=== PATIENT | male | born 1955 ===

== ENCOUNTER 2021-11-19 16:57 | Inpatient (IN) | payer MEDICARE, OTHER ==
[~2021-11-19] VITALS: Ht 180.3 cm; Wt 94.0 kg
--- NOTE | 2021-11-19 17:22 | NUR ---
Assumed care of pt at 1648; pt direct admit from [facility] and arrived accompanied by helicopter crew and security. Report received from emergency nurse, Jaime, prior to pt departing from sending facility. Pt arrived with levophed through peripheral IV at 0.07 mcg/kg/min. Discussed dosing with pharmacist. Levophed started at 6 mcg/min on arrival to ICU 6. BP stable. HR 110-125, atrial fibrillation. Pt arrived wearing 3 LPM NC. Titrated to room air. SpO2 95%. Lungs diminished t/o. Zarate swapped out and urinalysis sent.
[2021-11-19 18:00] LABS: Source, Urine Foley catheter
[2021-11-19 18:03] LABS: Appearance, Urine Clear (Clear); Bilirubin, Urine Neg (Neg); Blood, Urine 4+ (Neg); Color, Urine Yellow (P-Yellow); Glucose Qualitative, Urine Neg (Neg); Ketones, Urine Neg (Neg); Leukocyte Esterase, Urine 2+ (Neg); Nitrite, Urine Neg (Neg); Protein, Urine 2+ (Neg); Specific Gravity, Urine 1.015 (1.003-1.022); Urobilinogen, Urine 3+ (Normal)
[2021-11-19 18:41] LABS: Bacteria Few /hpf; Renal Epithelial Rare /hpf (0-Rare); Squamous Epithelial Cells Few /hpf (Few); Transitional Epithelial Cells Few /hpf (0-Rare); White Blood Cells, Urine 25-50 /hpf (0-5)
[2021-11-19 20:04] LABS: BASOPHILS ABSOLUTE AUTO 0.03 K/mm3 (0.00-0.23); BASOPHILS PERCENT AUTO 0 % (0-2); EOSINOPHILS ABSOLUTE AUTO 0.05 K/mm3 (0.00-0.68); EOSINOPHILS PERCENT AUTO 0 % (0-6); Hematocrit 21.7 % (37.0-53.0); Hemoglobin 6.9 g/dL (13.5-17.5); IMMATURE GRAN ABSOLUTE AUTO 0.06 K/mm3 (0.00-0.10); IMMATURE GRAN PERCENT AUTO 1 % (0-1); LYMPHOCYTES ABSOLUTE AUTO 1.44 K/mm3 (0.84-5.20); LYMPHOCYTES PERCENT AUTO 13 % (21-46); MONOCYTES ABSOLUTE AUTO 0.61 K/mm3 (0.16-1.47); MONOCYTES PERCENT AUTO 5 % (4-13); Mean Corpuscular HGB 35.9 pg (26.0-34.0); Mean Corpuscular HGB Conc 31.8 g/dL (31.5-36.5); Mean Corpuscular Volume 113 fL (80-100); NEUTROPHILS ABSOLUTE AUTO 9.17 K/mm3 (1.96-9.15); NEUTROPHILS PERCENT AUTO 81 % (41-73); NRBC ABSOLUTE 0.04 K/mm3 (0.00-0.02); NRBC Auto 0.4 /100 WBC (0.0-0.2); Platelet Count 142 K/mm3 (150-400); RDW Coefficient Variation 17.2 % (11.7-14.2); RDW Standard Deviation 71.1 fL (35.1-46.3); Red Blood Cell Count 1.92 M/mm3 (4.30-5.90); White Blood Cell Count 11.36 K/mm3 (4.00-11.30)
[2021-11-19 20:20] LABS: Alanine Aminotransfer (ALT/SGP 22 U/L (12-78); Albumin, Blood 2.2 g/dL (3.4-5.0); Albumin/Globulin Ratio 0.8 (0.8-1.8); Alk Phos 530 U/L (50-136); Anion Gap 8 mmol/L (6-16); Aspartate Aminotrans (AST/SGOT 95 U/L (12-37); Bilirubin, Total 1.6 mg/dL (0.1-1.0); Blood Urea Nitrogen 16 mg/dL (8-24); Bun/Creatinine Ratio 20.6 (12.0-20.0); CO2, Blood 22 mmol/L (21-32); Calcium, Blood 7.8 mg/dL (8.5-10.1); Chloride, Blood 108 mmol/L (98-108); Creatinine, Blood 0.78 mg/dL (0.60-1.20); Globulin, Blood 2.6 g/dL (2.2-4.0); Glomerular Filtration Rate >60 (60-); Glucose, Blood 96 mg/dL (70-99); Potassium, Blood 3.8 mmol/L (3.5-5.5); Sodium, Blood 138 mmol/L (136-145); Total Protein, Blood 4.8 g/dL (6.4-8.2)
[2021-11-19 20:39] LABS: Percent Saturation 87.5 % (20.0-50.0)
[2021-11-19] MEDS ORDERED: Ventolin/Prove6.7 GM INH (21:39)
[2021-11-19] MEDS ORDERED: GABAPENTIN600 MG PO (21:40)
[2021-11-19] MEDS ORDERED: ELIQUIS5 M3 PO (21:41)
[2021-11-19] MEDS ORDERED: Prinivil5 MG PO (21:42)
[2021-11-19] MEDS ORDERED: SPIRONOLACTONE50 MG PO (21:47)
[2021-11-19] MEDS ORDERED: METOPROLOL TART25 MG PO (21:47)
[2021-11-19] MEDS ORDERED: SOAANZ20 MG PO (21:48)
--- NOTE | 2021-11-19 22:29 | NUR ---
SHIFT ASSESSMENT ASSUMED CARE OF PT @ 1900. BEDSIDE REPORT RECEIVED FROM ARTURO PINEDA. PT ALERT AND ORIENTED, FOLLOWING COMMANDS. PT FRIENDLY, INTERACTIVE WITH CARE. PT MOVING ALL EXTREMITIES, VERY WEAK IN BLE. USES WHEELCHAIR AT BASELINE DUE TO OLD HIP FX/ KNEE FX. CURRENTLY ON RA c SATS >95%, WHEEZES T/O, ALBUTEROL TREATMENT GIVEN BY RT. A-FIB ON THE SHELL TRIM TOOL SETTER. LEVOPHED GTT INFUSING @ 6MCG/MIN c MAP >65 VIA PICC IN JOYCE. TEMP PROBE BRAXTON PATENT, DRAINING AAKASH URINE. CALL LIGHT IN REACH. WILL MONITOR CLOSELY.
[2021-11-20 04:46] LABS: BASOPHILS ABSOLUTE AUTO 0.03 K/mm3 (0.00-0.23); BASOPHILS PERCENT AUTO 0 % (0-2); EOSINOPHILS ABSOLUTE AUTO 0.01 K/mm3 (0.00-0.68); EOSINOPHILS PERCENT AUTO 0 % (0-6); Hematocrit 21.5 % (37.0-53.0); Hemoglobin 6.8 g/dL (13.5-17.5); IMMATURE GRAN ABSOLUTE AUTO 0.09 K/mm3 (0.00-0.10); IMMATURE GRAN PERCENT AUTO 1 % (0-1); LYMPHOCYTES ABSOLUTE AUTO 1.33 K/mm3 (0.84-5.20); LYMPHOCYTES PERCENT AUTO 11 % (21-46); MONOCYTES ABSOLUTE AUTO 0.22 K/mm3 (0.16-1.47); MONOCYTES PERCENT AUTO 2 % (4-13); Mean Corpuscular HGB 35.1 pg (26.0-34.0); Mean Corpuscular HGB Conc 31.6 g/dL (31.5-36.5); Mean Corpuscular Volume 111 fL (80-100); Mean Platelet Volume 9.9 fL (9.1-12.4); NEUTROPHILS ABSOLUTE AUTO 10.82 K/mm3 (1.96-9.15); NEUTROPHILS PERCENT AUTO 87 % (41-73); NRBC ABSOLUTE 0.02 K/mm3 (0.00-0.02); NRBC Auto 0.2 /100 WBC (0.0-0.2); Platelet Count 153 K/mm3 (150-400); RDW Coefficient Variation 17.2 % (11.7-14.2); RDW Standard Deviation 68.9 fL (35.1-46.3); Red Blood Cell Count 1.94 M/mm3 (4.30-5.90)
[2021-11-20 05:05] LABS: Alanine Aminotransfer (ALT/SGP 25 U/L (12-78); Albumin, Blood 2.2 g/dL (3.4-5.0); Albumin/Globulin Ratio 0.7 (0.8-1.8); Alk Phos 524 U/L (50-136); Anion Gap 8 mmol/L (6-16); Aspartate Aminotrans (AST/SGOT 91 U/L (12-37); Bilirubin, Total 1.4 mg/dL (0.1-1.0); Blood Urea Nitrogen 14 mg/dL (8-24); Bun/Creatinine Ratio 20.5 (12.0-20.0); CO2, Blood 22 mmol/L (21-32); Calcium, Blood 7.7 mg/dL (8.5-10.1); Chloride, Blood 106 mmol/L (98-108); Creatinine, Blood 0.68 mg/dL (0.60-1.20); Glomerular Filtration Rate >60 (60-); Glucose, Blood 151 mg/dL (70-99); Potassium, Blood 4.1 mmol/L (3.5-5.5); Sodium, Blood 136 mmol/L (136-145); Total Protein, Blood 5.2 g/dL (6.4-8.2)
--- NOTE | 2021-11-20 06:19 | NUR ---
SHIFT SUMMARY PT REMAINS ALERT AND ORIENTED. HE WAS ABLE TO SLEEP IN SMALL INCREMENTS DURING THE NIGHT. REMAINED OFF SUPPLEMENTAL OXYGEN, O2 SATS >95% ON RA. LEVOPHED GTT @ 4MCG/MIN c MAP >65. PT ASKING FOR SNACKS, STATED HE HASN'T HAD ANY FOOD IN A COUPLE DAYS. BEDSIDE SWALLOW EVALUATION COMPLETED BY THIS NURSE, PT DID WELL. NO SIGNS OF ASPIRATION. PT HOPING TO TRANSITION DIET TODAY. ONE SMALL LOOSE BM IN BEDPAN. TEMP PROBE BRAXTON REMAINS PATENT, DRAINING AAKASH URINE. NO OTHER ACUTE CHANGES IN PT CONDITION, WILL CONTINUE TO MONITOR.
--- NOTE | 2021-11-20 07:12 | NUR ---
ASSUME CARE: I have assumed care of this patient.
--- NOTE | 2021-11-20 10:19 | NUR ---
UPDATE: Dr. Ace called and notified of elevated HR. RN instructed to increase levophed titration.
--- NOTE | 2021-11-20 16:48 | NUR ---
Call placed to blood bank to inquire on status of 1 U PRBCs. Per blood bank, will be at least 30 more minutes until blood slip is available.
--- NOTE | 2021-11-20 17:35 | NUR ---
UPDATE: This RN called blood bank regarding delayed blood product; will send desi.
--- NOTE | 2021-11-20 18:52 | NUR ---
SHIFT SUMMARY: Pt continues to 2mcg of levophed for hypotension. He has received 50g of albumin with one unit of PRBC transfusing currently. HR afib in 130s with periods up to 160s. Pt was given a one time dose of diltiazem for rate control. Diltiazem drip held to reassess HR and BP after pt receives blood product per Dr. Winters. PICC line dressing changed. Pt began declining q 2 hr turns noting that it makes his "skin hurt". He was encouraged to reposition to prevent any skin breakdown.
[2021-11-21 03:43] LABS: BASOPHILS ABSOLUTE AUTO 0.01 K/mm3 (0.00-0.23); BASOPHILS PERCENT AUTO 0 % (0-2); EOSINOPHILS PERCENT AUTO 0 % (0-6); Hematocrit 18.6 % (37.0-53.0); Hemoglobin 6.1 g/dL (13.5-17.5); IMMATURE GRAN ABSOLUTE AUTO 0.22 K/mm3 (0.00-0.10); IMMATURE GRAN PERCENT AUTO 2 % (0-1); LYMPHOCYTES ABSOLUTE AUTO 1.49 K/mm3 (0.84-5.20); LYMPHOCYTES PERCENT AUTO 13 % (21-46); MONOCYTES ABSOLUTE AUTO 0.46 K/mm3 (0.16-1.47); MONOCYTES PERCENT AUTO 4 % (4-13); Mean Corpuscular HGB 35.1 pg (26.0-34.0); Mean Corpuscular HGB Conc 32.8 g/dL (31.5-36.5); Mean Corpuscular Volume 107 fL (80-100); Mean Platelet Volume 9.5 fL (9.1-12.4); NEUTROPHILS ABSOLUTE AUTO 8.94 K/mm3 (1.96-9.15); NEUTROPHILS PERCENT AUTO 80 % (41-73); NRBC ABSOLUTE 0.02 K/mm3 (0.00-0.02); NRBC Auto 0.2 /100 WBC (0.0-0.2); Platelet Count 125 K/mm3 (150-400); Red Blood Cell Count 1.74 M/mm3 (4.30-5.90); White Blood Cell Count 11.12 K/mm3 (4.00-11.30)
[2021-11-21 03:58] LABS: Anion Gap 8 mmol/L (6-16); Blood Urea Nitrogen 22 mg/dL (8-24); Bun/Creatinine Ratio 32.7 (12.0-20.0); CO2, Blood 23 mmol/L (21-32); Calcium, Blood 7.8 mg/dL (8.5-10.1); Chloride, Blood 106 mmol/L (98-108); Creatinine, Blood 0.67 mg/dL (0.60-1.20); Glomerular Filtration Rate >60 (60-); Glucose, Blood 141 mg/dL (70-99); Phosphorus, Blood 1.8 mg/dL (2.5-4.9); Potassium, Blood 3.6 mmol/L (3.5-5.5); Sodium, Blood 137 mmol/L (136-145)
--- NOTE | 2021-11-21 05:25 | NUR ---
Advised patient of morning H&H and order recieved to give another unit of PRBC. Patient states that he doesn't think he needs it. Educated on low H&H and reason need for blood. Becomes agitated and states "there is nothing wrong with my blood" Educated on right for refusal of blood products if not wanted. Advised of consent signed saying does want blood products if needed and that is reason blood was ordered. Patient states he doesn't need it and will not take blood transfusion until talks to a doctor. put call out to Dr Moralez to advise of patient wishes.
--- NOTE | 2021-11-21 05:32 | NUR ---
blood transfusion completed at beginning of shift without complications. Heart rate 120-130's. Cardizem drip started and titrated per eMAR. Cardizem infusing at 5mg/hr at this time with rates 80-90's. Levophed infusing at 1mcg/min. Throughout night patient states he doesn't know why medical treatments are being done, there is nothing wrong with him. Educated muliple times on reasons treatments are being done to include Cardizem and levo. States 'my heart rate has been that high for over 30 years" and "my blood pressure is always that low" Advised can call doctor if does wants drips stopped, states will keep drips 'for tonight" Declined to recieve PRBC for low H&H this am until speaks with physcian. Awaiting call back from hospitalist to advise
--- NOTE | 2021-11-21 05:50 | NUR ---
Dr. Moralez advised that wants to talk to a physcian before agreeing to recieve more PRBC.
--- NOTE | 2021-11-21 07:27 | NUR ---
ASSUME CARE: I have assumed care of this patient.
--- NOTE | 2021-11-21 07:46 | NUR ---
UPDATE: Discussed infusing cardiac medications with patient and attempted to reinforce education. Pt continues to decline blood product until he is able to speak with provider. Pt expresses his frustrations with discontinuity of care between [facility] and hospital in [place] and states, "You guys should know my heart rate has always been around 150."
--- NOTE | 2021-11-21 08:51 | NUR ---
UPDATE: Pt requesting to speak with doctor. He was informed that Dr. Ace had rounded on pt, but he refused to speak with her. Pt states, "I want a doctor who speaks Congolese, she doesn't know what shes talking about." Pt becoming quite uncooperative with nursing staff.
--- NOTE | 2021-11-21 09:09 | NUR ---
PALLIATIVE CARE: Palliative care called to come see patient.
--- NOTE | 2021-11-21 14:07 | NUR ---
CONSULT: Call placed to Dr. Valdez at and HIPPA compliant message left requesting return phone call.
--- NOTE | 2021-11-21 14:10 | NUR ---
CONSULT: Dr Valdez called back and was updated on pt case.
[2021-11-21 15:48] LABS: Prostate Specific Antigen 0.377 ng/mL (0.000-4.000)
[2021-11-21 16:15] LABS: Carcinoembryonic Antigen 330.6 ng/mL (0.0-3.0)
[2021-11-21 16:16] LABS: Cancer Antigen 19-9 420.7 U/mL (2.0-37.0)
--- NOTE | 2021-11-21 17:31 | NUR ---
SHIFT SUMMARY: Pt changed to medical status today. Pt received bed bath and shave from BIOLOGY TUTOR. He has declined turns from RN. Palliative care involved in case. Dr Valdez consulted for oncology. CT biopsy with needle guidance was ordered; Per radiology this will be completed on Tuesday as they are not performed on the weekends.
[2021-11-22 03:59] LABS: Hematocrit 20.3 % (37.0-53.0); Hemoglobin 6.5 g/dL (13.5-17.5); Mean Corpuscular HGB 34.8 pg (26.0-34.0); Mean Corpuscular Volume 109 fL (80-100); Mean Platelet Volume 9.4 fL (9.1-12.4); NRBC ABSOLUTE 0.07 K/mm3 (0.00-0.02); NRBC Auto 0.9 /100 WBC (0.0-0.2); Platelet Count 133 K/mm3 (150-400); RDW Coefficient Variation 18.7 % (11.7-14.2); Red Blood Cell Count 1.87 M/mm3 (4.30-5.90); White Blood Cell Count 8.18 K/mm3 (4.00-11.30)
[2021-11-22 04:15] LABS: Albumin, Blood 2.8 g/dL (3.4-5.0); Anion Gap 5 mmol/L (6-16); Blood Urea Nitrogen 24 mg/dL (8-24); Bun/Creatinine Ratio 37.9 (12.0-20.0); CO2, Blood 26 mmol/L (21-32); Calcium, Blood 7.9 mg/dL (8.5-10.1); Chloride, Blood 108 mmol/L (98-108); Creatinine, Blood 0.63 mg/dL (0.60-1.20); Glomerular Filtration Rate >60 (60-); Glucose, Blood 101 mg/dL (70-99); Phosphorus, Blood 1.5 mg/dL (2.5-4.9); Potassium, Blood 3.9 mmol/L (3.5-5.5); Sodium, Blood 139 mmol/L (136-145)
[2021-11-22 04:47] LABS: BAND PERCENT MAN 6 % (0-8); BASOPHILS PERCENT MAN 0 % (0-2); EOSINOPHILS PERCENT MAN 0 % (0-6); LYMPHOCYTES ABSOLUTE MAN 1.06 K/mm3 (0.84-5.20); LYMPHOCYTES PERCENT MAN 13 % (21-46); MONOCYTES ABSOLUTE MAN 0.32 K/mm3 (0.16-1.47); MONOCYTES PERCENT MAN 4 % (4-13); NEUTROPHILS ABSOLUTE MAN 6.78 K/mm3 (1.96-9.15); SEG NEUTROPHILS PERCENT MAN 77 % (41-73); TOTAL CELLS COUNTED 100
--- NOTE | 2021-11-22 05:46 | NUR ---
Heart rhythem a-fib with stable rates 80-90's through out night. Blood pressure stable. Rested most of night. Declines for nursing to turn, states can turn self. Hgb 6.5 this am, still declining blood transfusion.
--- NOTE | 2021-11-22 10:54 | NUR ---
0730: RN COMPLETED SBAR REPORT TO THIS RN, ASSUMED CARE OF PT. PT RESTING IN ROOM. PT STATES HIS GOALS ARE TO RETURN HOME SOON POSSIBLE AND DECLINES TO DISCUSS MANY ELEMENTS OF HIS DISEASE PROCESS AT THIS TIME. VSS. DENIES SOB/N/V/CP/DIZZINESS. PALE, SKIN WARM/DRY. 0800: PT REPOSITIONED SELF WITH MINIMAL ASSISTANCE; PROVIDED MINIMAL OFFLOADING OF COCCYX BUT PATIENT ADAMANT THAT HE WILL NOT ALLOW BEING TURNED [id number] IT "THROWS [HIM] OFF." DISCUSSED PURPOSE OF REPOSITIONING, HE VERBALIZED UNDERSTANDING. 0900: PROVIDED CARE FOR PATIENT X APPROXIMATELY 30 MIN WITHIN ROOM, INCLUDING ANSWERING PT'S QUESTIONS AND ASSISTING WITH MEAL. 1030: PT HAD SMALL BOWEL MOVEMENT.
[2021-11-22 13:52] LABS: Stool Occult Blood Guaiac 1 Neg (Neg)
--- NOTE | 2021-11-22 17:54 | NUR ---
SHIFT SUMMARY NEURO: PT COOPERATIVE THROUGHOUT SHIFT, AAOX4 AND FOLLOWS COMPLEX COMMANDS. CARDIAC: ATRIAL FIBRILLATION WITHOUT RVR. HELD LISINOPRIL DUE TO SBP APPROXIMATELY 95MMHG. AFEBRILE. RESP: REC'D BREATHING TREATMENT. CHRONIC NONPRODUCTIVE COUGH, OCCASIONAL. GI: ATE 100% OF BREAKFAST, LUNCH, AND DINNER. BM X 3, SOFT/BROWN. : BRAXTON W/ 900ML UOP. KPHOS GIVEN FOR E'LYTE REPLACEMENT. INTEG: FULL BED BATH PROVIDED. PROTECTIVE BARRIER FOAM DRESSING TO COCCYX DUE TO PT DECLINING MAJOR POSITION ASSISTANCE. MK: NO CHANGES. MAKES MINOR POSITIONAL CHANGES, ALLOWS MINOR ASSISTANCE FOR TURNING. PSYCH: PT COOPERATIVE, PREFERS HIS ROOM COMPLETELY SHUT/PRIVATE TO FACILITATE WATCHING TV WITH VOLUME UP, AND LIGHTS OFF SO HE CAN CONTROL THEM FROM HIS BED.
[2021-11-23 03:54] LABS: Hematocrit 20.8 % (37.0-53.0); Hemoglobin 6.5 g/dL (13.5-17.5); Mean Corpuscular HGB 34.6 pg (26.0-34.0); Mean Corpuscular HGB Conc 31.3 g/dL (31.5-36.5); Mean Corpuscular Volume 111 fL (80-100); Mean Platelet Volume 9.5 fL (9.1-12.4); NRBC ABSOLUTE 0.12 K/mm3 (0.00-0.02); NRBC Auto 2.4 /100 WBC (0.0-0.2); Platelet Count 130 K/mm3 (150-400); RDW Coefficient Variation 18.4 % (11.7-14.2); RDW Standard Deviation 72.9 fL (35.1-46.3); Red Blood Cell Count 1.88 M/mm3 (4.30-5.90)
[2021-11-23 04:06] LABS: Albumin, Blood 2.6 g/dL (3.4-5.0); Anion Gap 2 mmol/L (6-16); Blood Urea Nitrogen 23 mg/dL (8-24); Bun/Creatinine Ratio 35.9 (12.0-20.0); CO2, Blood 26 mmol/L (21-32); Calcium, Blood 7.5 mg/dL (8.5-10.1); Chloride, Blood 110 mmol/L (98-108); Creatinine, Blood 0.64 mg/dL (0.60-1.20); Glomerular Filtration Rate >60 (60-); Glucose, Blood 87 mg/dL (70-99); Phosphorus, Blood 2.1 mg/dL (2.5-4.9); Potassium, Blood 4.2 mmol/L (3.5-5.5); Sodium, Blood 138 mmol/L (136-145)
[2021-11-23 04:13] LABS: BAND PERCENT MAN 3 % (0-8); BASOPHILS PERCENT MAN 0 % (0-2); EOSINOPHILS PERCENT MAN 0 % (0-6); LYMPHOCYTES ABSOLUTE MAN 0.58 K/mm3 (0.84-5.20); LYMPHOCYTES PERCENT MAN 12 % (21-46); MONOCYTES ABSOLUTE MAN 0.34 K/mm3 (0.16-1.47); MONOCYTES PERCENT MAN 7 % (4-13); MYELOCYTE ABSOLUTE MAN 0.04 K/mm3 (0.00-0.00); MYELOCYTE PERCENT MAN 1 % (0-0); NEUTROPHILS ABSOLUTE MAN 3.92 K/mm3 (1.96-9.15); SEG NEUTROPHILS PERCENT MAN 77 % (41-73); TOTAL CELLS COUNTED 100
--- NOTE | 2021-11-23 05:02 | NUR ---
Continues to have productive cough with yellow/white sputum. Sputum amount decreasing. Lungs coarse with exp wheeze bilat. Still refusing turns, educated on pressure ulcer prevention, states turning hurts back too much. will occasionally allow for shift of hips. complains mepilex on coccyx itches and hurts. Wants dressing taken off. Educated on dressing helps custion coccyx and helps prevent breakdown. Insist that mepilex be taken off. Mepilex removed. small fissure noted. Declines to have new dressing placed. Advised needs to shift hips more often to keep pressure off the area. Pain meds given per eMAR as needed.
[2021-11-23 06:46] LABS: International Normalized Ratio 1.44; Prothrombin Time Results 14.8 Sec (9.7-11.5)
--- NOTE | 2021-11-23 09:02 | NUR ---
CARE ASSUMED OF PT AT 0700. PT AWAKE, IRRITABLE. SOME OF PT W POOR INSIGHT REGARDING MEDICAL CARE/DESIONS. PT STATES HE REFUSED PT/OT "BECAUSE I CANT EVEN LIFT MY LEG. I NEED MEDICAL HELP FIRST SO I CAN MOVE MY LEG, THATS WHY IM HERE, FOR MEDICAL HELP". PT HAD ALSO REFUSED BLOOD TRANSFUSION BECAUSE "I DIDNT NEED IT, NOTHING IS WRONG WITH ME". IMPORTANCE OF FOLLOWING MD ADVICE REVIEWED. QUESTIONS ANSWERED. PT HAS AGREED TO BLOOD TRANSFUSION. PT MAY AGREE TO PT/OT LATER TODAY. PT MEDICATED FOR PAIN 03/17 "EVERYWHERE, YOU SHOULD KNOW WHERE IM HURTING, I SHOULDNT HAVE TO TELL YOU". BP MEDS HELD BP 91/63. BP SHOULD IMPROVE WITH BLOOD, WILL MEDICATE AT THAT POINT; WILL UPDATE DR HALEY. BONE BIOPSY WILL HAVE TO BE DONE AN OUTPT PER CALVIN GUTIERREZ IN RADIOLOGY; DR HALEY NOTIFIED.
--- NOTE | 2021-11-23 09:24 | NUR ---
BLOOD TRANSFUSION STARTED. PT CONTINUES TO COMPLAIN ABOUT CARE,"THOSE STUPID IDIOT GIRLS LEAVE THE AIR TREATMENT (UDN) ON BEACAUSE THEY'RE TOO BUSY VISITING THEIR FRIENDS BEING LAZY". BP 82/57, MAP 64. PT REPOSITIONED W PILLOWS.
--- NOTE | 2021-11-23 09:51 | NUR ---
AT 15MIN CHECK PT C/O SOB. VITAL SIGNS AT BASLINE, LUNG SOUNDS REMAIN COARSE. PT DOES HAVE SOME POSSIBLE STRIDOR, FORCED EXCELLED BREATH CAUSING A LOW TONE RUB SOUND. NO HIGH PITCHED NOISES, VOICE UNCHANGED, RESP UNLABORED. BLOOD TRANSFUSION STOPPED IMMEDIATELY, DR HALEY CALLED AND UPDATED. BENADRYL 25MG IV GIVEN. PT INITIALLY REFUSED BREATHING TREATMENT BUT THEN ACCEPTED LONG I AGREED TO STAY AT BEDSIDE.
--- NOTE | 2021-11-23 12:23 | NUR ---
CONVERSATION: SERVICES ENGINEER MAGDAE WITH PATIENT AND BEING EXTRA PATIENT WITH PATIENTKENDRA DURING CARE AND CONVERSATION. SPOKE WITH HIM ABOUT RECOGNIZING HE IS NOT STRONG HE HAS BEEN AT HOME. HE STATE HE " MESSED UP" AND NOW HE IS HERE IN THE HOSPITAL. HE STATE HE FELL AT HOME BETWEEN HIS BED AND MOTORIZED CHAIR AND HAD TO HAVE EMS LIFT HIM UP OFF THE FLOOR. HE STATES HE HATES FEELING SO HELPLESS. HE HAS NEVER HAD ANYONE CARE FOR HIM SINCE HE WAS 17 YRS OLD (FIFTY YEARS). HE STATES HE KNOWS THAT PHYSICAL THERAPY WANTS HIM TO STAND AND PIVOT TO CHAIR LIKE HE DID AT HOME BUT HE STATES HE "CANT DO IT HERE BECAUSE THE BED IS TOO HIGH AND HE DOESN'T HAVE HIS MOTORIZED CHAIR". HE EXPRESSES FEAR OF FALLING AND DOES NOT WANT TO HAVE THAT HAPPEN AGAIN. HE KNOWS HE NEEDS TO GET STRONGER HOWEVER HE FEELS VERY WEAK AND DOESN'T BELIEVE THE STAFF HERE WILL LISTEN TO HIS CONCERNS ABOUT WHAT HE WANTS TO AND OR FEELS HE CAN DO FOR HIS OWN TREATMENT PLAN. RN HAS BEEN HAVING PATIENT GUIDE BASIC ADL CARE AND CHOICES TO MOVE OR HOW TO MOVE. PATIENT ALLOWED STAFF TO MASSAGE HIS RIGHT ARM WHERE HE STATED HIS HANDS ARE TINGLING. PATIENT HAS BEEN PARTICIPATING IN CARE TO MOVE HIMSELF IN THE BED WITH VERY DETAILED POSITIONING REQUEST. RN IS TRYING TO GIVE PATIENT MUCH AUTOMOMY IN CARE AND TREATMENT PLAN HAS POSSIBLE WHILE STILL HAVING PATIENT RECIEVED CARE.
--- NOTE | 2021-11-23 14:31 | NUR ---
PT HAS REFUSED PT/OT EVALUATION.
--- NOTE | 2021-11-23 18:45 | NUR ---
ARRIVAL TO UNIT RECEIVED REPORT FROM JAYDE GATEHOUSE ATTENDANT. PT ARRIVED TO MEDICAL UNIT AT 15:37 VIA BED TRANSFER FROM ICU-6. VSS UPON ARRIVAL. PT MADE COMFORTABLE, ORIENTED TO ROOM AND UNIT AND ALL NEEDS MET. SUCTION SET UP IN ROOM FOR PT TO SELF SUCTION ORAL SECRETIONS FROM PRODUCTIVE COUGHING. TELE #22 PLACED WHICH SHOWS A. FIB WITH HR AT 120-130. PT RESTING QUIETLY, CALL LIGHT IN REACH.
--- NOTE | 2021-11-23 18:53 | NUR ---
SHIFT SUMMARY PT REMAINS RESTING QUIETLY WITH CALL LIGHT IN REACH. NO COMPLAINTS. VSS. TELLE SHOWS A. FIB WITH HR 120S-130S.
[2021-11-24 04:58] LABS: BASOPHILS ABSOLUTE AUTO 0.02 K/mm3 (0.00-0.23); BASOPHILS PERCENT AUTO 0 % (0-2); EOSINOPHILS ABSOLUTE AUTO 0.11 K/mm3 (0.00-0.68); EOSINOPHILS PERCENT AUTO 2 % (0-6); Hematocrit 21.3 % (37.0-53.0); Hemoglobin 6.6 g/dL (13.5-17.5); IMMATURE GRAN ABSOLUTE AUTO 0.29 K/mm3 (0.00-0.10); IMMATURE GRAN PERCENT AUTO 6 % (0-1); LYMPHOCYTES ABSOLUTE AUTO 1.48 K/mm3 (0.84-5.20); LYMPHOCYTES PERCENT AUTO 29 % (21-46); MONOCYTES ABSOLUTE AUTO 0.52 K/mm3 (0.16-1.47); MONOCYTES PERCENT AUTO 10 % (4-13); Mean Corpuscular HGB 33.8 pg (26.0-34.0); Mean Corpuscular Volume 109 fL (80-100); Mean Platelet Volume 9.3 fL (9.1-12.4); NEUTROPHILS ABSOLUTE AUTO 2.65 K/mm3 (1.96-9.15); NEUTROPHILS PERCENT AUTO 52 % (41-73); Platelet Count 121 K/mm3 (150-400); RDW Coefficient Variation 18.2 % (11.7-14.2); RDW Standard Deviation 70.9 fL (35.1-46.3); Red Blood Cell Count 1.95 M/mm3 (4.30-5.90); White Blood Cell Count 5.07 K/mm3 (4.00-11.30)
[2021-11-24 05:45] LABS: Albumin, Blood 2.6 g/dL (3.4-5.0); Anion Gap 6 mmol/L (6-16); Blood Urea Nitrogen 19 mg/dL (8-24); Bun/Creatinine Ratio 32.6 (12.0-20.0); CO2, Blood 24 mmol/L (21-32); Calcium, Blood 7.7 mg/dL (8.5-10.1); Chloride, Blood 108 mmol/L (98-108); Creatinine, Blood 0.58 mg/dL (0.60-1.20); Glomerular Filtration Rate >60 (60-); Glucose, Blood 79 mg/dL (70-99); Phosphorus, Blood 2.5 mg/dL (2.5-4.9); Potassium, Blood 4.5 mmol/L (3.5-5.5); Sodium, Blood 138 mmol/L (136-145)
--- NOTE | 2021-11-24 06:17 | NUR ---
SHIFT SUMMARY PT A/O X 4, MED PER MAR FOR C/O GENERALIZED PAIN, REPOSITIONED FOR COMFORT, PT ON SPECIALTY AIR MATTRESS. VSS, LUNGS COURSE, CONGESTED COUGH NOTED, RICK ROOM AIR, BREATHING TX PER RT. PT INCONTINENT OF SMALL BM, BRAXTON PATENT WITH CLEAR, YELLOW URINE NOTED. ANTICIPATE D/C WHEN MEDICALLY STABLE.
--- NOTE | 2021-11-24 12:35 | NUR ---
NOTIFIED BY TELE PT HR CONSISTENTLY 150-160. PT IN ROOM RESTING WITH NO S/S OF DISTRESS, DENIES CP, SOB. DOES REPORT 7/10 BACK AND LEG PAIN. NOTIFIED DR. SIMEON OF HR. PER DR. SIMEON PT NEEDS A BLOOD TRANSFUSION BUT IS REFUSING. DR. SIMEON REQUESTS GIVE PAIN MEDICATION AND THEN NOTIFY PT SO HE WILL WORK WITH THEM. OXYCODONE 5 MG GIVEN PER OCT.
[2021-11-24 13:08] LABS: A/G RATIO 1.5 (0.7-1.7); ALBUMIN 2.6 g/dL (2.9-4.4); ALPHA-1-GLOBULIN 0.2 g/dL (0.0-0.4); ALPHA-2-GLOBULIN 0.4 g/dL (0.4-1.0); BETA GLOBULIN 0.5 g/dL (0.7-1.3); GAMMA GLOBULIN 0.5 g/dL (0.4-1.8); GLOBULIN, TOTAL 1.7 g/dL (2.2-3.9); M-SPIKE Not Observed g/dL (Not Observed); PROTEIN, TOTAL, SERUM 4.3 g/dL (6.0-8.5)
--- NOTE | 2021-11-24 16:15 | NUR ---
Attempted Pal Care visit earlier today. Pt declined visit.
--- NOTE | 2021-11-24 16:55 | NUR ---
PATIENT HAS BEEN RUNNING TACHY THIS SHIFT. HE WAS AFIB 121 EARLIER, BUT HAS BEEN UP IN THE 140'S BEFORE THAT. CURRENTLY, DATA PROCESSING MANAGER CALLED AND STATED HE IS RUNNING UP IN THE 150'S/ HE DID JUST RECIEVE RT TREATMENT, AND HAS A VISITOR NOW. DR. SIMEON TRIED TO EXPLAIN THAT HE NEEDS A TRANSFUSION, BUT HE DECLINES STATING HE HAD A REACTION YESTERDAY. THIS FRONT LINE SUPERVISOR APPROACHED HIM ABOUT THE TRANSFUSION WELL, AND IT REALLY UPSET HIM. HE BEGAN YELLING "DON'T YOU PEOPLE TALK TO EACHOTHER? I CAN NOT HAVE BLOOD, BECASUE I HAD A REACTION TO IT YESTERDAY" HE ESCALATED QUICKLY WITH ATTEMPTS TO TALK ABOUT THE SITUATION. LS ARE COURSE, AND WHEEZY. HE IS COUGHING UP SOME GREEN/YELLOW SPUTUM AT TIMES. LEGS ARE PAINFUL DUE TO A 22 FOOT FALL YEARS AGO, WHEN HE BROKE HIS RIGHT HIP, KNEE, AND A PLATE WAS PLACED IN HIS PELVIS.
--- NOTE | 2021-11-24 18:19 | NUR ---
Because the patient has been running tachy and irregular on tele this shift, and is refusing blood, we attempted to have his sign the declination of blood/blood product sheet. He refuses to sign stating "i'm not signing sh*t, you already know I can not have blood, because I had a reaction, it isn't becasue I don't want to, it is because I can't. You people are trying to kill me". The form was placed in the front of his chart with the patients explanation of the reason why he wouldn't sign, and then 2 RN's signed the sheet.
--- NOTE | 2021-11-24 22:25 | NUR ---
TELE CALLED REGARDING PT HEART RATE SUSTAINING IN THE 140S AND 150S. DR OTERO CONTACTED REGARDING THIS. PT BP IS 108/63. ORDER OBTAINED FOR IV CARDIZEM AND PO METOPROLOL. WILL CONTINUE TO MONITOR.
--- NOTE | 2021-11-24 23:04 | NUR ---
PT REFUSED IV CARDIZEM SAYING "I DON'T WANT ANYTHING THAT WILL KILL ME." PT AGREED TO TAKING 25 MG PO METOPROLOL. PT UPSET WITH DOSE OF 25 MG AND SAYS THAT HE TAKES 75 MG AT HOME. PT ARGUING WITH ME ABOUT THE NEED FOR RATE CONTROL DUE TO SUSTAINED 140S AND 150S HEART RATE. PT SAYS "MY HEART RATE HAS BEEN THAT HIGH MY WHOLE LIFE". I STATED MY UNDERSTANDING AND EDUCATED PT ON ANEMIA AND THE EFFECT OF THE METOPROLOL ON LOWERING BP. PT SAYS "METOPROLOL IS NOT A BLOOD PRESSURE MEDICATION". I AGREED WITH PT BUT STATED THE SIDE EFFECT IS POSSIBLE HYPOTENSION. PT RAISING VOICE WITH ME AND UNCOOPERATIVE WITH INSTRUCTION/TEACHING.
[2021-11-25 05:57] LABS: Hematocrit 21.9 % (37.0-53.0); Hemoglobin 6.8 g/dL (13.5-17.5)
--- NOTE | 2021-11-25 06:16 | NUR ---
[employer] SUMMARY ADMITTED FOR CARDIOGENIC SHOCK. PT IS FULL CODE. HE IS AWAITING A BED AT [facility]. PT IS WC BOUND AT BASELINE AND HAS LIMITED MOVEMENT IN THE LEGS. HE REPORTED LOWER LEG PAIN AND WAS MEDICATED X1. PT HEART RATE RAN A.FIB IN THE 130S AND 140S THROUGHOUT THE NIGHT, WITH INCREASE TO 160. PT WAS TREATED WITH ONE DOSE OF 25 MG METOPROLOL PO DUE TO REFUSING THE IV CARDIZEM THAT WAS ORDERED. PT BP HAS BEEN IN THE LOW 100S SYSTOLIC. PT HAD IMPROVEMENT IN HIS HEARTRATE TO THE 110S AND 120S WITH MAINTENANCE OF BP ABOVE 100 SYSTOLIC. HE IS VERY PALE. HE IS STILL REFUSING BLOOD TRANSFUSION AT THIS TIME AND IS ADAMANT THAT THE MEDICATIONS IN THE IV ARE "GOING TO KILL ME". BRAXTON IN PLACE. PT IS ALERT AND ORIENTED X3, CAN BE VERY IRRITABLE AT TIMES.
[2021-11-25] MEDS ORDERED: METO25 PO (12:01)
[2021-11-25] MEDS ORDERED: ACET500 PO (12:03)
[2021-11-25] MEDS ORDERED: FOLI1 PO (12:06)
[2021-11-25] MEDS ORDERED: LEVO750 PO (12:07)
[2021-11-25] MEDS ORDERED: OXYC5 PO (12:53)
--- NOTE | 2021-11-25 17:21 | NUR ---
DISCHARGE CLIENT WAS DISCHARGED TO HOME WITH HOME HEALTH SERVICES, PT AND OT. HIS SCRIPTS WERE FAXED TO THE PHARMACY OF HIS CHOICE AND HE WAS PROVIDED PAPERWORK WITH INTSRUCTIONS TO FOLLOW UP FOR BONE BIOPSY. PICC LINE WAS REMOVED, AND PATIENT DID GO HOME WITH A BRAXTON CATHETER. TRANSPORTATION WAS ARRANGED BY VINER OPERATOR AND HE WAS PICKED UP TRANSPORTATION COMPANY AND WHEELED OUT WITH SEWING TEACHER.
== END 2021-11-25 17:17 | disposition home health service (06) | DRG 871 ==
LOC: ICUE 16:57 → MEDS 16:57 → ICUE 11-21 10:23 → MEDS 11-23 15:56
PROVIDERS: Family Medicine; Internal Medicine; Internal Medicine Critical Care Medicine; Internal Medicine Hematology & Oncology; ADMIT Internal Medicine
PROC: 30233N1 Transfusion of Nonautologous Red Blood Cells into Peripheral Vein, Percutaneous Approach (ICD-10-PCS; principal; 2021-11-20)
PROC: 3E03329 Introduction of Other Anti-infective into Peripheral Vein, Percutaneous Approach (ICD-10-PCS; 2021-11-25)
PROC: 3E033XZ Introduction of Vasopressor into Peripheral Vein, Percutaneous Approach (ICD-10-PCS; 2021-11-25)
DX: A41.89 Other specified sepsis (principal); R65.21 Severe sepsis with septic shock; J15.0 Pneumonia due to Klebsiella pneumoniae; J69.0 Pneumonitis due to inhalation of food and vomit; N13.30 Unspecified hydronephrosis; I48.20 Chronic atrial fibrillation, unspecified; J44.1 Chronic obstructive pulmonary disease with (acute) exacerbation; J44.0 Chronic obstructive pulmonary disease with (acute) lower respiratory infection; C79.51 Secondary malignant neoplasm of bone; D69.59 Other secondary thrombocytopenia; G89.4 Chronic pain syndrome; C80.1 Malignant (primary) neoplasm, unspecified; D46.9 Myelodysplastic syndrome, unspecified; D53.9 Nutritional anemia, unspecified; Z20.822 Contact with and (suspected) exposure to COVID-19; Z96.649 Presence of unspecified artificial hip joint; I10 Essential (primary) hypertension; Z98.890 Other specified postprocedural states; Z79.899 Other long term (current) drug therapy; Z87.891 Personal history of nicotine dependence; Z88.0 Allergy status to penicillin
CPT/HCPCS: 36430; 36569; 71045; 80053; 80069; 81001; 82272; 82378; 82607; 82728; 82746; 83540; 83550; 83605; 84145; 84153; 84165; 84484; 85014; 85018; 85025; 85610; 85730; 86301; 86850; 86900; 86901; 86923; 87040; 87070; 87077; 87186; 87205; 94640; 94664; 94760; A9270; C1751; J0456; J1200; J1650; J1956; J2185; J2930; J7040; J7050; J7060; J7120; P9016; P9046